=== PATIENT | female | born 1985 | race Caucasian/White ===

== ENCOUNTER 2023-07-21 18:47 | Emergency (ER) | payer OTHER ==
[2023-07-21 18:55] VITALS: TEMP 97.9
--- NOTE | 2023-07-21 19:19 | ERPHSYRPT ---
- History of Present Illness Source: patient Exam Limitations: no limitations Patient Subjective Stated Complaint: PT states "I have had chest pain on and off for the past two weeks. I was drinking on friday and the pain got really bad after and I am just nervous and want it checked out." Triage Nursing Assessment: PT presented alert and oriented X 3, skin pwd. Pt ambulates with an upright steady gait, able to speak in clear full sentencse. PT resting comfortably on the bed. Hx Tetanus, Diphtheria Vaccination/Date Given: No Hx Influenza Vaccination/Date Given: No Hx Pneumococcal Vaccination/Date Given: No Immunizations Up to Date: No <JANELL GARCIA - Last Filed: 07/21/23 19:14> <YVROSE SINGH - Last Filed: 07/21/23 21:02> - History of Present Illness Time Seen by Provider: 07/21/23 18:56 Physician History: Patient is here with chest pain on and off for 3 weeks. Got worse this weekend, midsternal. Patient states it got worse after she was drinking alcohol this weekend. Patient has no known cardiac history. Does smoke cigarettes. No family history of severe cardiac disease or other early myocardial infarction. Patient has no history of blood clots, myocardial infarction, other known cardiac issues. Currently rates her chest pain as a 5 out of 10 midsternal nonradiating. (JANELL GARCIA) Allergies/Adverse Reactions: No Known Drug Allergies Allergy (Verified 07/21/23 18:56) Home Medications: No Reportable Medications [No Reported Medications] 07/21/23 [History] Travel Risk - International Travel Have you traveled outside of the country in past 3 weeks: No - Coronavirus Screening Are you exhibiting any of the following symptoms?: No Close contact with a COVID-19 positive Pt in past 14-21 Days: No - Vaccine Status Have you recieved a Covid-19 vaccination: No <JANELL GARCIA - Last Filed: 07/21/23 19:14> - Past Medical History Pertinent Past Medical History: Yes Psycho-Social History: Anxiety - Past Surgical History Past Surgical History: Yes Other Surgical History: c section - Female History Hx Last Menstrual Period: Hx Now: No (unknown) - Social History Smoking Status: Current every day smoker How long have you smoked: years Exposure to second hand smoke: Yes Drug Use: marijuana Patient Lives Alone: No <JANELL GARCIA - Last Filed: 07/21/23 19:14> - Physical Exam SpO2: 100 <JANELL GARCIA - Last Filed: 07/21/23 19:14> - Nursing Vital Signs Nursing Vital Signs: Initial Vital Signs Temperature 97.9 F 07/21/23 18:48 Pulse Rate 125 H 07/21/23 18:48 Respiratory Rate 20 07/21/23 18:48 Blood Pressure 150/109 07/21/23 18:48 O2 Sat by Pulse Oximetry 100 07/21/23 18:48 Pain Scale Pain Intensity 3 - Physical Exam Comments: 07/21/23 19:15 Review of Systems Constitutional: Negative for fever. HENT: Negative for congestion. Respiratory: Negative for shortness of breath. Cardiovascular: Negative for chest pain. Gastrointestinal: Negative for abdominal pain. Genitourinary: Negative for dysuria. Musculoskeletal: Negative for back pain. Skin: Negative for rash. Neurological: Negative for headaches. Psychiatric/Behavioral: Negative for behavioral problems. All other systems reviewed and are negative. Physical Exam Vitals signs and nursing note reviewed. Constitutional: Appearance: Patient is well-developed. HENT: Head: Normocephalic and atraumatic. Eyes: Conjunctiva/sclera: Conjunctivae normal. Neck: Musculoskeletal: Normal range of motion. Trachea: No tracheal deviation. Cardiovascular: Rate and Rhythm: Normal rate. Pulmonary: Effort: Pulmonary effort is normal. No respiratory distress. Abdominal: Palpations: Abdomen is soft. Musculoskeletal: General: No deformity. Skin: General: Skin is warm and dry. Neurological/ Psychiatric: Mental Status: Mental status, behavior, interaction with environment is appropriate for patient's age and condition (JANELL GARCIA) - Course Nursing assessment & vital signs reviewed: Yes EKG Interpreted by Me: Sinus Rhythm <JANELL GARCIA - Last Filed: 07/21/23 19:14> Ordered Tests: Active Orders 24 hr Category Date Time Status Plaster Form Maker STAT Care 07/21/23 18:57 Active EKG-ER Only STAT Care 07/21/23 18:56 Active IV Insertion STAT Care 07/21/23 18:56 Active CHEST 1 VIEW (PORTABLE) Stat Exams 07/21/23 18:57 Taken CBC W DIFF Stat Lab 07/21/23 19:35 Completed CK-Creatinine Phosphokinase Stat Lab 07/21/23 19:35 Completed CMP Stat Lab 07/21/23 19:35 Completed D-DIMER QUANTITATIVE Stat Lab 07/21/23 19:35 Completed Manual Differential NC Stat Lab 07/21/23 19:35 Completed NT PRO BNPII Stat Lab 07/21/23 19:35 Completed TROPONIN Q4H Lab 07/21/23 19:35 Completed TROPONIN Q4H Lab 07/21/23 23:00 Ordered TROPONIN Q4H Lab 07/22/23 03:00 Ordered Medication Summary Discontinued Medications Generic Name Dose Route Start Last Admin Trade Name Freq PRN Reason Stop Dose Admin Aspirin 324 mg 07/21/23 18:56 07/21/23 19:48 Aspirin 81 Mg Tab.Chew PO 07/21/23 18:57 324 mg STAT ONE Administration Aspirin Confirm 07/21/23 19:38 Aspirin 81 Mg Tab.Chew Administered 07/21/23 19:39 Dose 324 mg .ROUTE .STK-MED ONE Heparin Sodium (Beef Lung) 5,000 unit 07/21/23 20:44 07/21/23 20:50 Heparin 5000 Units/0.5 Ml 5,000 Unit/0.5 Ml Syr IV 07/21/23 20:45 5,000 unit STAT ONE Administration Heparin Sodium (Beef Lung) Confirm 07/21/23 20:49 Heparin 5000 Units/0.5 Ml 5,000 Unit/0.5 Ml Syr Administered 07/21/23 20:50 Dose 5,000 unit .ROUTE .STK-MED ONE Sodium Chloride 1,000 mls @ 999 mls/hr 07/21/23 18:56 07/21/23 20:52 Sodium Chloride 0.9% 1000 Ml IV 07/21/23 19:56 Infused .Q1H1M STA Infusion Sodium Chloride Confirm 07/21/23 19:39 Sodium Chloride 0.9% 1000 Ml Administered 07/21/23 19:40 Dose 1,000 mls @ ud .ROUTE .STK-MED ONE Morphine Sulfate 4 mg 07/21/23 18:56 07/21/23 19:47 Morphine Sulfate 4 Mg/Ml Injection IV 07/21/23 18:57 4 mg STAT ONE Administration Morphine Sulfate Confirm 07/21/23 19:38 Morphine Sulfate 4 Mg/Ml Injection Administered 07/21/23 19:39 Dose 4 mg .ROUTE .STK-MED ONE Nitroglycerin 1 gm 07/21/23 18:56 07/21/23 19:47 Nitroglycerin 1 Gm Packet TOP 07/21/23 18:57 1 gm STAT ONE Administration Nitroglycerin Confirm 07/21/23 19:38 Nitroglycerin 1 Gm Packet Administered 07/21/23 19:39 Dose 1 gm .ROUTE .STK-MED ONE Ondansetron HCl 4 mg 07/21/23 19:43 07/21/23 19:47 Ondansetron Hcl 4 Mg/2 Ml Vial IV 07/21/23 19:44 4 mg STAT ONE Administration Ondansetron HCl Confirm 07/21/23 19:42 Ondansetron Hcl 4 Mg/2 Ml Vial Administered 07/21/23 19:43 Dose 4 mg .ROUTE .STK-MED ONE Lab/Rad Data: Laboratory Result Diagrams 07/21/23 19:35 07/21/23 19:35 Laboratory Results 07/21/23 07/21/23 07/21/23 Range/Units 19:35 19:35 19:35 WBC (4.0-10.5) x10^3/uL RBC (4.1-5.4) x10^6/uL Hgb (12.0-16.0) g/dL Hct (35-47) % MCV (78-100) fL MCH (26-32) pg MCHC (32-36) g/dL RDW (11.5-14.0) % Plt Count (150-450) x10^3/uL MPV (7.5-11.0) fL D-Dimer 0.27 (0.0-0.50) mg/L Sodium (135-145) mmol/L Potassium (3.5-5.1) mmol/L Chloride (98-107) mmol/L Carbon Dioxide (22-30) mmol/L Anion Gap (5-15) MEQ/L BUN (7-17) mg/dL Creatinine (0.52-1.04) mg/dL Estimated GFR ML/MIN Glucose (74-106) mg/dL Calcium (8.4-10.2) mg/dL Total Bilirubin (0.2-1.3) mg/dL AST (14-36) U/L ALT (0-35) U/L Alkaline Phosphatase (38-126) U/L Creatine Kinase (30-135) U/L Troponin I 0.375 H* (0.000-0.034) ng/mL NT-Pro-B Natriuret Pep 2430 (<300) pg/mL Serum Total Protein (6.3-8.2) g/dL Albumin (3.5-5.0) g/dL 07/21/23 07/21/23 Range/Units 19:35 19:35 WBC 17.2 H (4.0-10.5) x10^3/uL RBC 5.95 H (4.1-5.4) x10^6/uL Hgb 12.8 (12.0-16.0) g/dL Hct 42.7 (35-47) % MCV 71.8 L (78-100) fL MCH 21.5 L (26-32) pg MCHC 30.0 L (32-36) g/dL RDW 22.4 H (11.5-14.0) % Plt Count 694 H (150-450) x10^3/uL MPV 9.0 (7.5-11.0) fL D-Dimer (0.0-0.50) mg/L Sodium 141 (135-145) mmol/L Potassium 3.9 (3.5-5.1) mmol/L Chloride 106 (98-107) mmol/L Carbon Dioxide 19 L (22-30) mmol/L Anion Gap 19.3 H (5-15) MEQ/L BUN 20 H (7-17) mg/dL Creatinine 0.55 (0.52-1.04) mg/dL Estimated GFR 121.0 ML/MIN Glucose 140 H (74-106) mg/dL Calcium 9.8 (8.4-10.2) mg/dL Total Bilirubin 0.40 (0.2-1.3) mg/dL AST 25 (14-36) U/L ALT 30 (0-35) U/L Alkaline Phosphatase 103 (38-126) U/L Creatine Kinase 84 (30-135) U/L Troponin I (0.000-0.034) ng/mL NT-Pro-B Natriuret Pep (<300) pg/mL Serum Total Protein 8.2 (6.3-8.2) g/dL Albumin 4.9 (3.5-5.0) g/dL - Progress Progress: improved Counseled pt/family regarding: lab results, diagnosis, need for follow-up, rad results <JANELL GARCIA - Last Filed: 07/21/23 19:14> <YVROSE SINGH - Last Filed: 07/21/23 21:02> - Progress Progress Note: 07/21/23 19:15 I was handed the patient's EKG which was read as possible ST elevation. I did review this EKG it demonstrates sinus tachycardia, rate of 123, RI interval 147, QT C421, QRS is 77. Patient does have some nonspecific ST changes. V2 demonstrates a biphasic, inverted T wave, nonspecific otherwise ST depression in 2 3 and aVF. This does not appear to be a STEMI on my initial read. I did immediately go see the patient though. Discussing with the patient, patient does not appear to have a excellent story for acute coronary syndrome. Repeat EKG at 1909 15 minutes later. This EKG demonstrates sinus tachycardia at 113, RI interval 148, QRS 84, QTc is 483-lead to 3 and aVF demonstrate no ST elevation, V2 continues to demonstrates inverted T waves, biphasic T waves in V4 V5 however no STEMI. Differential diagnosis includes: PNA, STEMI, NSTEMI, other infection, musculoskeletal pain, pneumothorax - We'll obtain basic labs, fluids, EKG, troponin, chest x-ray Transfer of care to Dr. Singh at 7 PM. He will follow-up on all labs and im aging. Most likely will need 2 troponins, reexam, D-dimer also ordered. Disposition per the above (JANELL GARCIA) 07/21/23 20:41 The patient's D-dimer is within normal limits. The troponin level was just called to us which was elevated. I will repeat the twelve-lead EKG at this time. Dr. Garcia and I looked at the initial twelve-lead EKG and felt the initial read was not a STEMI. Patient had a repeat twelve-lead EKG that was performed at [address] Garcia interpreted that twelve-lead EKG. He did not feel there was ST elevation at that time. Patient's symptoms have significantly improved however the troponin level significantly elevated. I am repeating a t hird twelve-lead EKG at this time. Will also provide the patient with 5000 units of heparin intravenously x 1. Patient will need to be transferred in observed at a minimum even if this third twelve-lead EKG is normal or shows no evidence of ST elevation or acute ischemia. 07/21/23 21:00 I interpreted the patient's laboratory data results. The patient has an elevated troponin level. The third twelve-lead EKG was interpreted by me. This third twelve-lead EKG was performed on 07/21/2023 at 2043. Patient's twelve- lead EKG is normal sinus rhythm with heart rate of 96 bpm. I do not appreciate significant ST elevation in any leads. There is normal QRS, normal QT interval and normal axis deviation. I spoke with Romulo at the transfer center for [facility]. She auto acceptance this patient after I provided her with the patient history, presenting complaint, physical findings, emergency department intervention and laboratory, radiographic and EKG study results. Dr. Kendrick is the accepting physician. (YVROSE SINGH) Medical Desision Making - Diagnostic Testing Diagnostic test were ordered, analyzed, and reviewed by me: Yes - Risk of complications The pt has a high risk of morbidity or mortality based on: Decision regarding hospitilization or escalation of hosp level of care <YVROSE SINGH - Last Filed: 07/21/23 21:02> - Departure Critical Care Time: No <JANELL GARCIA - Last Filed: 07/21/23 19:14> - Departure Departure Disposition: Transfer Critical Care Time: Yes Critical Care Time(excluding separately billable procedures): Critical 30-74 mins (45 minutes) <YVROSE SINGH - Last Filed: 07/21/23 21:02> - Departure Clinical Impression: Chest pain, Non-STEMI (non-ST elevated myocardial infarction) Condition: Stable Referrals: DOCTOR,NO FAMILY [Primary Care Provider] - Follow up/PCP as directed
[2023-07-21] MEDS ORDERED: BABY ASPIRIN 81 MG CHEW ONE (19:38)
[2023-07-21] MEDS ORDERED: MORPHINE SULFATE 4 MG INJ ONE (19:38)
[2023-07-21] MEDS ORDERED: NITRO-BID 2% UD PACKETS ONE (19:38)
[2023-07-21] MEDS ORDERED: Sodium Chloride 0.9% 1000 ML 1,000 ML ONE (19:39)
[2023-07-21] MEDS ORDERED: Zofran 4 MG/2 ML VIAL ONE (19:42)
[2023-07-21 19:47] LABS: Hematocrit 42.7 % (35-47); Hemoglobin 12.8 g/dL (12.0-16.0); Mean Cell Volume 71.8 fL (78-100); Mean Corpuscular Hemoglobin 21.5 pg (26-32); Platelet Count 694 x10^3/uL (150-450); Red Blood Count 5.95 x10^6/uL (4.1-5.4); Red Cell Distribution Width 22.4 % (11.5-14.0)
[2023-07-21] MEDS: Zofran 4 MG/2 ML VIAL IV ONE (19:47)
[2023-07-21] MEDS: NITRO-BID 2% UD PACKETS TOP ONE (19:47)
[2023-07-21] MEDS: MORPHINE SULFATE 4 MG INJ IV ONE (19:47)
[2023-07-21] MEDS: Sodium Chloride 0.9% 1000 ML 1,000 ML IV STA (19:48)
[2023-07-21] MEDS: BABY ASPIRIN 81 MG CHEW PO ONE (19:48)
[2023-07-21 19:57] LABS: White Blood Count 17.2 x10^3/uL (4.0-10.5)
[2023-07-21 20:00] LABS: ALBUMIN 4.9 g/dL (3.5-5.0); ANION GAP 19.3 MEQ/L (5-15); BILIRUBIN,TOTAL 0.4 mg/dL (0.2-1.3); Calcium 9.8 mg/dL (8.4-10.2); Creatinine 1 0.55 mg/dL (0.52-1.04); Potassium 3.9 mmol/L (3.5-5.1); Total Protein 8.2 g/dL (6.3-8.2)
[2023-07-21] MEDS ORDERED: HEPARIN 5000 UNITS/0.5 ML (HIGH RISK MED) ONE (20:49)
[2023-07-21] MEDS: HEPARIN 5000 UNITS/0.5 ML (HIGH RISK MED) IV ONE (20:50)
[2023-07-21 22:12] VITALS: BP 122/67; PULSE 104; RESP 20; O2SAT 98
[2023-07-21 22:26] LABS: Lymphocytes 11 % (24-44); Neutrophils 89 % (36.0-66.0); Total Cells Counted 100
[2023-07-21 22:27] LABS: ANISOCYTOSIS 1+; Hypochromia 2+; Platelet Estimate INCREASED (NORMAL)
--- NOTE | 2023-07-22 09:09 | XRAY ---
Indication: Chest pain. Comparison: None Portable chest demonstrates normal heart, lungs, and bony thorax.
== END 2023-07-21 22:10 | disposition short-term general hospital (02) ==
LOC: ED 18:47
DX: I21.4 Non-ST elevation (NSTEMI) myocardial infarction (principal); R07.9 Chest pain, unspecified; Z28.310 Unvaccinated for COVID-19; Z72.0 Tobacco use
CPT/HCPCS: 36000; 36415; 71045; 80053; 82550; 83880; 84484; 85025; 85379; 93005; 93041; 96360; 96374; 96375; 99285; 99291; J1644; J2270; J2405; A9270-GY